=== PATIENT | male | born 1970 | race Caucasian/White ===

== ENCOUNTER 2017-05-22 17:36 | Emergency (ER) | payer OTHER ==
[2017-05-22] MEDS ORDERED: Adacel (T-DAP) 0.5 ML VIAL ONE (17:53)
[2017-05-22] MEDS ORDERED: HYDROcodone/Acetaminophen 10/325 mg Tablet ONE (18:20)
--- NOTE | 2017-05-22 21:13 | RAD ---
LEFT HAND THREE VIEWS: 05/22/17 HISTORY: Crush injury, left hand pain. FINDINGS/IMPRESSION: There is a comminuted, mildly displaced and angulated fracture involving the shaft of the proximal ph alanx of the left ring finger/fourth digit. POS: GENEVIEVE
== END 2017-05-22 18:43 | disposition home or self-care (01) ==
LOC: BURERS 17:36
DX: S62.615A Displaced fracture of proximal phalanx of left ring finger, initial encounter for closed fracture (principal); E78.5 Hyperlipidemia, unspecified; I10 Essential (primary) hypertension; F17.210 Nicotine dependence, cigarettes, uncomplicated; Z79.899 Other long term (current) drug therapy; W22.8XXA Striking against or struck by other objects, initial encounter
CPT/HCPCS: 26605; 90471; 90715